=== PATIENT | male | born 1980 | race Caucasian/White ===

== ENCOUNTER → 2022-08-02 | Outpatient (CLI) | payer OTHER, SELFPAY ==
[2022-08-02 12:43] LABS: Erythrocyte Sedimentation Rate 5 mm/hr (0-20)
[2022-08-02 12:44] LABS: Absolute Lymphocyte Count 0.98 X10^3/uL (0.83-4.51); Absolute Neutrophil Count 3.2 X10^3/uL (2.0-7.7); Basophil# 0.03 X10^3/uL; Basophil% 0.6 % (0-1); Eosinophil# 0.14 X10^3/uL; Eosinophils% 2.9 % (0-5); Hemoglobin 15.9 g/dL (13.0-16.5); Lymphocyte # 0.98 X10^3/ul (0.83-4.51); Lymphocyte % 20.2 % (19-41); Mean Corp Hgb Conc 33.1 g/dL (32-36); Mean Corpuscular Hgb 29.2 pg (27.0-32.0); Mean Corpuscular Volume 88.1 fL (80-94); Mean Platelet Vol. 10.3 fl (6.2-12.0); Monocyte% 10.3 % (0-10); NRBC Flagged by Analyzer 0 % (0-5); Neutrophil # 3.19 X10^3/uL (2.7-7.7); Neutrophil % 65.8 % (47-70); Platelet Count 171 K/mm3 (150-450); RBC Distribution Width CV 12.8 % (11.6-14.6); RBC Distribution Width SD 41.1 fl (35.1-43.9); Red Blood Count 5.45 M/mm3 (4.6-6.2); White Blood Count 4.9 K/mm3 (4.4-11.0)
[2022-08-02 13:13] LABS: AST(SGOT) 18 U/L (15-37); Alanine Aminotransfer ALT/SGPT 32 U/L (16-61); Alkaline Phosphatase 57 U/L (45-117); Anion Gap 7 (5-15); BUN 18 mg/dL (7-18); BUN/Creat Ratio 18.9 RATIO (10-20); CRP 2.99 mg/L (0.0-3.0); Calcium,Total 8.8 mg/dL (8.5-10.1); Chloride 103 mmol/L (98-107); Cholesterol 155 mg/dL (200); Creatinine, Serum 0.95 mg/dL (0.70-1.30); EST Glomerular Filtration Rate 92 mL/min (>60); Est Glom Filt Rate - Afr Amer 111 mL/min (>60); Globulin 4.1 g/dL (2.2-4.2); Glucose 110 mg/dL (74-106); High Density Lipoprotein 51 mg/dL; Potassium 4.1 mmol/L (3.5-5.1); Protein, Total 8.1 g/dL (6.4-8.2); Sodium Level 140 mmol/L (136-145); Triglycerides 79 mg/dL; Very Low Density Lipoprotein 16 mg/dL (5-40)
== END | disposition home or self-care (01) ==
LOC: BIMLAB 09:21
PROVIDERS: Internal Medicine; PCP Internal Medicine; Referring Provider Internal Medicine; Visit Provider Internal Medicine
DX: Z13.6 Encounter for screening for cardiovascular disorders (principal); M54.9 Dorsalgia, unspecified; G89.29 Other chronic pain
CPT/HCPCS: 36415; 80053; 80061; 85025; 85652; 86140

== ENCOUNTER 2022-08-11 13:57 | Outpatient (RCR) | payer SELFPAY ==
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
--- NOTE | 2022-11-15 18:43 | HP.PTDCNRP_ITS ---
Patient Information Patient Information: AYAN COLBY was seen in my office for initial evaluation on 08/11/22. The following Plan of Care was established for this patient: POC Established Initial Frequency: 2x /Week Initial Duration: 4 Weeks Anticipated Interventions Patient/Client Instruction: Educate patient on: Condition and Plan of Care For the Purpose of:: To decrease pain, To increase ROM, To improve muscle performance and motor function, To improve ability to perform ADL's, To increase tolerance to activity/condition/position, To improve ability of physical actions for home/community/work/leisure, To improve gait and locomotor functions, To improve health of tissue, To decrease soft tissue restriction and To prevent re- injury Therapeutic Exercise to Include: Strength training, Body mechanics, Postural training, Flexibilty training, Dynamic Lumbar Stabilization and [place] Exercises For the Purpose of:: To decrease pain, To increase ROM, To improve muscle performance and motor function, To improve ability to perform ADL's, To increase tolerance to activity/condition/position, To improve ability of physical actions for home/community/work/leisure, To improve health of tissue, To decrease soft tissue restriction, To increase flexibility/ROM and To prevent re-injury Manual Therapy Techniques to Include: Mobilization Comment: LUMBAR For the Purpose of:: To decrease pain and To increase ROM Last Seen Last Seen: This patient was last seen in our office . Pertinent comments regarding their Physical therapy will appear below: Patient was seen for PT evaluation for back pain for HEP At this point I will be discontinuing this patient from physical therapy. I would be happy to see this patient again in the future if found appropriate by the physician. Thank you! Arslan Hinojosa, PT, Cert MDT, OCS Balance/Gait/Functional tests Balance/Special Test Scores Oswestry Low Back Score: 27
== END 2022-08-11 19:00 | disposition home or self-care (01) ==
LOC: PT 13:57
PROVIDERS: PCP Internal Medicine; Referring Provider Internal Medicine; Visit Provider Internal Medicine
DX: M54.9 Dorsalgia, unspecified (principal); G89.29 Other chronic pain
CPT/HCPCS: 97110; 97162

== ENCOUNTER 2025-02-08 18:31 | Emergency (ER) | payer OTHER, SELFPAY ==
[2025-02-08 18:32] VITALS: BP 119/79; PULSE 82; RESP 16; TEMP 37.1; O2SAT 98; BMI 30.5
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
--- OUTSIDE RECORDS SUMMARY | 2025-02-08 19:51 | XMS RPT_ITS | CCD ---
Author Organization [facility] Team Providers Care Data Developer Name Role Phone KHOA OG APRN, CNP Primary Care Phys ician MIRELA SANDOVAL, KAN Salas Attending Unavailable KHOA OG APRN, CNP Primary Care U Dr. Surendra Acuña Attending Provider Surendra Valenzuela MD Primary Care Provider KIRILL REYNOLDS Attending Unavailabl e SURENDRA VALENZUELA Primary Care Unavailable Gideon Raymundo Attending Unavailable Surendra Valenzuela Referring Unavailable Surendra Valenzuela Primary Care Unavailable Medications Current Medications Medication Drug Class(es) Dates Sig (Normalized) Sig (Original) acetaminophen 325 mg / oxyCODONE hydrochloride 5 mg oral tablet (2 sources) Opioid Agonist Start: 11-23-2022 End: 11-26-2022 take 1-2 tablets by mouth every six hours as needed for pain oxyCODONE-acetaminop hen (PERCOCET) 5-325 mg tablet Indications: Crushing injury of finger, initial encounter , Open displaced fracture of distal phalanx of left ring finger, initial encounter Take 1-2 tablets by mouth every 6 hours as needed for pain for up to 3 days. 12 tablet 0 11/23/2022 11/26/2022 Active Comment on above: Take 1-2 tablets by mouth every 6 hours as needed for pain for up to 3 days. cephalexin 500 mg oral capsule (2 sources) Cephalosporin Antibacterial Start: 11-23-2022 End: 11-28-2022 take 1 capsule by mouth four times daily cephALEXin (KEFLEX) 500 mg capsule Take 1 capsule by mouth four times daily for 5 days. 20 capsule 0 11/23/2022 11/28/2022 Active Comment on above: Take 1 capsule by [facility] four times daily for 5 days. cyclobenzaprine hydrochloride 10 mg oral tablet (1 source) Muscle Relaxant Start: 06-30-2022 End: 07-05-2022 take 1 tablet by mouth three times daily as needed for muscle spasms Flexeril use cyclobenzaprine Dose : 10 mg =, Oral, TID, PRN PRN Muscle spasm, X 5 day(s), # 15 tab(s), 0 Refill(s), 07/05/22 21:18:00 EDT, Lumbar strain Start Date: 06/30/22 Stop Date: 07/05/22 Status: Ordered ibuprofen 200 mg oral tablet (4 sources) Nonsteroidal Anti-inflammatory Drug Start: 08-02-2022 take 1 tablet by mouth every six hours Ibuprofen (Advil) 200 mg tablet Active 200 MG PO EVERY 6 HOURS August 02, 2022 12:00am Comment on above: Take 200 mg by mouth every 6 hours as needed for pain. meloxicam 7.5 mg oral tablet (1 source) Nonsteroidal Anti-inflammatory Drug Start: 06-30-2022 End: 07-30-2022 take 1 tablet by mouth once daily meloxicam 7.5 mg oral tablet Dose : 7.5 mg = 1 tab(s), Oral, qDay, if tolerated well may increase to 15 mg (2 tabs) per day, # 60 tab(s), 0 Refill(s), Lumbar strain Start Date: 06/30/22 Stop Date: 07/30/22 Status: Ordered naproxen 500 mg oral tablet (1 source) Nonsteroidal Anti-inflammatory Drug Start: 04-06-2010 take 1 tablet by mouth twice daily naproxen 500 mg oral tablet 500 mg = 1 tab(s), PO, BID, # 60 tab(s), Supply 0, 0 Refill(s) Start Date: 04/06/10 Status: Ordered None - No Current Medications (1 source) Start: 04-05-2010 None - No Current Medications 0 Refill(s), current med (Hx) Start Date: 04/05/10 Status: Ordered predniSONE 20 mg oral tablet (1 source) Start: 08-02-2022 take 40 mg by mouth once daily Prednisone Active 40 MG PO DAILY August 02, 2022 12:00am Completed/Discontinued Medications Medication Drug Class(es) Dates Sig (Normalized) Sig (Original) oxyCODONE hydrochloride 5 mg oral tablet (5 sources) Opioid Agonist Start: 11-26-2022 take 1 tablet by mouth every six hours as needed for pain oxyCODONE IR (ROXICODONE) 5 mg immediate release tablet Indications: 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 10 tablet 0 11/26/2022 Active Start: 11-24-2022 take 1 tablet by jluis th every six hours as needed for pain oxyCODONE IR (ROXICODONE) 5 mg immediate release tablet Indications: Closed fracture of tuft of distal phalanx of finger Take 1 tablet by mouth every 6 hours as needed for pain. 4 tablet 0 11/24/2022 Active Comment on above: Take 1 tablet by jlusi th every 6 hours as needed for pain. Problems Problem Classification Problem Date Documented Date Episodic/Chronic Administrative/social admission (1 source) Persons encountering health services in other specified circumstances; Translations: [Other reasons for seeking consultation] 08-02-2022 Episodic Fracture of upper limb (8 sources) Closed fracture of distal phalanx of ring finger; Translations: [Nondisplaced fracture of distal phalanx of left ring finger, initial encounter for closed fracture] Onset: 11-26-2022 11-24-2022 Episodic Osteoarthritis (1 source) Arthritis; Translations: [Unspecified osteoarthritis, unspecified site] 08-02-2022 Chronic Other connective tissue disease (1 source) Pain in finger of left hand; Translations: [Pain in left finger(s)] 12-05-2022 Episodic Other screening for suspected conditions (not mental disorders or infectious disease) (1 source) Encounter for screening for cardiovascular disorders; Translations: [Screening for other and unspecified cardiovascular conditions] 08-02-2022 Episodic Other upper respiratory disease (1 source) Seasonal allergy; Translations: [Other seasonal allergic rhinitis] 08-02-2022 Chronic Spondylosis; intervertebral disc disorders; other back problems (1 source) Dorsalgia, unspecified; Translations: [Backache, unspecified] 08-02-2022 Episodic Sprains and strains (1 source) Lower back injury; Translations: [Strain of muscle, fascia and tendon of lower back, initial encounter] Onset: 06-30-2022 Episodic Substance-related disorders (1 source) Nicotine dependence, other tobacco product, uncomplicated; Translations: [Tobacco use disorder] 08-02-2022 Chronic Results Test Name Value Interpretation Reference Range Facility Internal Medicine Office Vis george 05-24-2024 Internal Medicine Office Visit [facility] [address] [place] [address] [place] [address] OFFICE VISIT Date of Service: 05/24/24 MR#: [id number] Acct: [id number] Name: AYAN LARIOS Rep #: [id number] : 1980 Provider: MAGDALENO Landeros Age/Sex: 44/M [facility] Status: Signed Intake Vital Signs 08/02/22 08:26 05/24/24 15:30 Height 6 ft 6 ft Weight: 220 lb BMI 29.8 BP 120/80 Blood Pressure Location Lt brachial Position Sitting Respiration 14 Pulse 76 Pulse Source Monitor Temp 98.1 F Temp Source Temporal Pulse Oximetry (%) 93 Oxygen Delivery Method room air Intake Visit Reasons: acute - ear pain/discuss meds Chief Complaint: 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 L is worse than R. States that he is having ear pressure and some pain, has ringing in his ears. Denies discharge or muffling. It is getting worse. States that it is bad in the mornings when he gets up as he is very dizzy. States L eye for about the same duration started getting puffy and dry in the morning, he states it does not affect vision, has been using atb ointment. States it cui a little occasionally gets some crusting and discharge. The atb ointment helps it throughout the day. States the skin feels tight. 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 Smoking Status: Current some day smoker tobacco type: cigars per week: 2 Electronic Cigarette Use: not used alcohol intake: current alcohol intake frequency: 0-2 drinks per day Alcohol type: beer and hard liquor substance use type: does not use what type of physical activity do you participate in: none do you feel safe at home: Yes Questionnaire MARINA-7 MARINA-7 Feeling nervous, anxious, or on edge: 3 = Nearly every day Not being able to stop or control worryin = More than half the days Worrying too much about different things: 2 = More than half the days Trouble relaxin = More than half the days Being so restless that it is hard to sit still: 2 = More than half the days Becoming easily annoyed or irritable: 3 = Nearly every day Feeling afraid as if something awful might happen: 0 = Not at all Total MARINA-7 score (0-4 normal; 5-9 mild; 10-14 moderate; 15-21 severe): 14 Source: Developed by Drs. Avtar Maynard, Joya Trevino, Ej Carbajal and colleagues, with an educational senthil from [employer] HPI HPI Chief Complaint: est care Details: AYAN LARIOS, is a 44 M who presents to the office today for bilateral ear complaints. Patient states that he has a history of infections requiring antibiotics. He states that that this has been occurring just in the last 3-4 years. He states that he gets a little pressure in the ears and some minor pains but its more of the ringing in the ears that bothers him He also has had some issues with the left eye for the past month. He states that one morning he woke up and it was itchy and burned a little. He has been using an ointment (aquafor) on the lid to keep the skin from being dry. He has not had any issues with his vision. HE has not had any discharge. No pains. Patient states that he would also like to discuss some issues that he has had with anxiety and even some memory type of things. Patient states that he does have a history of having some anxiety that has required medications in the past. He states though that recently he just has had difficulties focusing and staying on task. He states though that the last 4 to 5 months have been new and different as he states that his father which he has watched decline for quite a while now. He also states that they have moved which has been stressful. Then the job is (more content not included)... [facility] Office Visit (AGPOB3) -------- AYAN LARIOS ([id number]) 1980 M Date Time Provider Department 12/24/22 9:15 AM KIRILL REYNOLDS AGPOB3 During your visit today, we recorded the following information about you: Respiration Weight Height 18/minute 102.1 kg 1.803 m Tracy Lombardi LPN 12/27/2022 3:48 PM Signed Prepared 10 cc syringe with 10 cc lidocaine with epinephrine with 27 gauge needle and gave to for injection - Kirill Vaughan LPN, MD 12/27/2022 3:48 PM Signed Hand Clinic Post-op Note Surgical Hx: 11/23/2022 left ring finger crush injury from tow change on a truck, L RF open extra-articular transverse displaced P3 frx, washed and closed in the ED, got antibiotics 11/26/22 left ring finger IANDD, ORIF distal phalanx with 1 retrograde 0.045 K wire that was buried underneath the skin, nerves and tendons intact, K wire removed at 4 wks out Interval Hx: Doing well Has been wearing the splint Pain and swelling improved Still some decreased sensation just at the tip Exam: L RF Healed incisions, chromic tails in place Mod swelling Minimal erythema DIP held in extension Slightly decreased sensation at the ulnar and radial tip [facility] Imaging: L RF K wire in place Dip concentric Frx remains reduced Assessment/Plan: (S62.645C) Closed fracture of tuft of distal phalanx of finger (primary encounter diagnosis) XRs reviewed w/ pt Doing well 4 wks out, ready for pin removal Finger blocked w/ 10 cc's lido w/ epi K wire successfully removed under sterile technique Dressing placed, OK to remove this evening OK to start gentle motion Remain protected Wbing RTC 2 wks for repeat check Additional Injections for (K wire removal) Informed Consent Consent Obtained: Verbal Canmer Protocol A moment to CARE was completed. SIGN IN TIME OUT 12/27/2022 3:47 PM The procedure site was prepped in the usual sterile fashion. Outcome: tolerated well, no immediate complications Post-injection instructions were reviewed with the patient and the patient voiced understanding of these instructions. 10 cc's 1% lido w/ epi for block Kirill Reynolds MD Hand Surgery Allergies As of Date: 12/24/2022 (No Known Allergies) Date Reviewed: 12/24/2022 Reviewed by: Ines De La Garza - Fully Assessed Reason for Visit: Post Op [174] Primary Visit Diagnosis:Closed fracture of tuft of distal phalanx of finger [S62.639A] Order(s):XR DIGIT GENERAL 3V FRONTAL/LAT/OBL LEFT [[id number]] Order #: [id number] Additional Injections [PNE004] Order #: [id number] Prescriptions as of 12/27/2022 - oxyCODONE IR (ROXICODONE) 5 mg immediate release tablet Take 1 tablet by mouth every 6 hours as needed for pain. - ibuprofen (MOTRIN) 200 mg tablet Take 200 mg by mouth every 6 hours as needed for pain. Problem List As Of Date 12/24/2022 Noted Resolved Pre-op exam [Z01.818] 11/26/2022 Open nondisplaced fracture of distal phalanx of*11/26/2022 Letter Text Encounter Status:Closed by KIRILL REYNOLDS on 12/27/22 Normal [facility] Absolute lymphocyte countOrd ered By: Surendra Valenzuela on 08-02-2022 Lymphocytes Auto (Unsp spec) [#/Vol] 0.98 10*3/uL 0.83-4.51 [facility] Basophil percentageOrdered B y: Surendra Valenzuela on 08-02-2022 Basophils/100 WBC (Bld) 0.6 % 0-1 [facility] Bilirubin [Mass/Vol] 0.60 mg/dL 0.20-1.00 [facility] Comment on above: For patients on eltr ombopag therapy, use of Dimension [place] TBIL is not recommended. Chloride [Moles/Vol] 103 mmol/L 98-107 [facility] Cholesterol [Mass/Vol] 155 mg/dL <200 [facility] Comment on above: <200 mg/dL Desirable 200-240 mg/dL Borderline >240 mg/dL High Risk Eosinophils/100 WBC (Bld) 2.9 % 0-5 [facility] Glucose [Mass/Vol] 110 mg/dL 74-106 [facility] Comment on above: Fasting Glucose resu lt from 100 to 125 mg/dL suggests IMPAIRED HOMEOSTASIS per A.D.A. criteria. Neutrophils (Bld) [#/Vol] 3.2 10*3/uL 2.0-7.7 [facility] Neutrophils/100 WBC (Bld) 65.8 % 47-70 [facility] Potassium [Moles/Vol] 4.1 mmol/L 3.5-5.1 [facility] Protein [Mass/Vol] 8.1 g/dL 6.4-8.2 [facility] Sodium [Moles/Vol] 140 mmol/L 136-145 [facility] Triglyceride [Mass/Vol] 79 mg/dL <199 [facility] Comment on above: The drugs N-Acetylcy steine and Metamizole may falsely depress this assay.Serum Triglycerides Reference Interval Normal <150 mg/dL Borderline high 150 - 199 mg/dL High 200 - 499 mg/dL Very High > or = 500 mg/dL WBC (Bld) [#/Vol] 4.9 10*3/uL 4.4-11.0 [facility] Blood erythrocytes count (nu mber/volume)Ordered By: Surendra Valenzuela on 08-02-2022 RBC (Bld) [#/Vol] 5.45 10*6/uL 4.6-6.2 [facility] Blood hemoglobin measurement (mass/volume)Ordered By: Surendra Valenzuela on 08-02-2022 Hemoglobin (Bld) [Mass/Vol] 15.9 g/dL 13.0-16.5 [facility] Blood lymphocytes/100 leukoc ytesOrdered By: Surendra Valenzuela on 08-02-2022 Lymphocytes/100 WBC (Bld) 20.2 % 19-41 [facility] Blood monocytes/100 leukocyt esOrdered By: Surendra Valenzuela on 08-02-2022 Monocytes/100 WBC (Bld) 10.3 % 0-10 [facility] Blood platelet mean volumeOr dered By: Surendra Valenzuela on 08-02-2022 Platelet mean volume (Bld) [Entitic vol] 10.3 fL 6.2-12.0 [facility] Determination of erythrocyte mean corpuscular volume (MCV)Ordered By: Surendra Valenzuela on 08-02-2022 MCV (RBC) [Entitic vol] 88.1 fL 80-94 [facility] Erythrocyte sedimentation ra teOrdered By: Surendra Valenzuela on 08-02-2022 ESR (Bld) [Velocity] 5 mm/h 0-20 [facility] Hematocrit Auto (Bld) [Volum e fraction]Ordered By: Surendra Valenzuela on 08-02-2022 Hematocrit (Bld) [Volume fraction] 48.0 % 40-54 [facility] Laboratory - Chemistry and C hemistry - challengeOrdered By: Surendra Valenzuela on 08-02-2022 ALP [Catalytic activity/Vol] 57 U/L 45-117 [facility] ALT [Catalytic activity/Vol] 32 U/L 16-61 [facility] CO2 [Moles/Vol] 30.0 mmol/L 21.0-32.0 [facility] Globulin (S) [Mass/Vol] 4.1 g/dL 2.2-4.2 [facility] Urea nitrogen/Creatinine [Mass ratio] 18.9 mg/mg 10-20 [facility] - Hematology and Cell countsOrdered By: Surendra Valenzuela on 08-02-2022 Erythrocyte distribution width (RBC) [Entitic vol] 41.1 fL 35.1-43.9 [facility] Erythrocyte distribution width (RBC) [Ratio] 12.8 % 11.6-14.6 [facility] Immature granulocytes/100 WBC (Bld) 0.200 % 0.0-0.9 [facility] Comment on above: IG% - Immature Granu locytes (promyelocytes, myelocytes and metamyelocytes) > 1% indicates that a LEFT SHIFT is Present. MCH (RBC) [Entitic mass] 29.2 pg 27.0-32.0 [facility] Nucleated RBC/100 WBC (Bld) [Ratio] 0 % 0-5 [facility] MCHC Auto (RBC) [Mass/Vol]Or dered By: Surendra Valenzuela on 08-02-2022 MCHC (RBC) [Mass/Vol] 33.1 g/dL 32-36 [facility] No Panel InformationOrdered By: Surendra Valenzuela on 08-02-2022 Estimated GFR (MDRD) Amer 111 mL/min >60 [facility] Comment on above: GFR Calc Estimated GFR (MDRD) Non-Af Amer 92 mL/min >60 [facility] Comment on above: Non- GFR Calc Platelets bldOrdered By: Abel Valenzuela on 08-02-2022 Platelets (Bld) [#/Vol] 171 10*3/uL 150-450 [facility] Serum or plasma C reactive p rotein measurement (mass/volume)Ordered By: Surendra Valenzuela on 08-02-2022 CRP [Mass/Vol] 2.99 mg/L 0.0-3.0 [facility] Comment on above: C-Reactive Protein ( CRP) provides useful information for thediagnosis, therapy and monitoring of inflammatory processesand associated diseases. For the evaluation of Relative Riskfor Cardiovascular Disease, a High Sensitivity CRP (HSCRP)should be ordered. Serum or plasma albumin mariela urement (mass/volume)Ordered By: Surendra Valenzuela on 08-02-2022 Albumin [Mass/Vol] 4.0 g/dL 3.2-5.0 [facility] Serum or plasma albumin/glob ulin mass ratioOrdered By: Surendra Valenzuela on 08-02-2022 Albumin/Globulin [Mass ratio] 1.0 {ratio} 0.9-2.4 [facility] Serum or plasma calcium mariela urement (mass/volume)Ordered By: Surendra Valenzuela on 08-02-2022 Calcium [Mass/Vol] 8.8 mg/dL 8.5-10.1 [facility] Serum or plasma cholesterol in HDL measurement (mass/volume)Ordered By: Surendra Valenzuela on 08-02-2022 Cholesterol in HDL [Mass/Vol] 51 mg/dL >40 [facility] Comment on above: The drugs N-Acetylcy steine and Metamizole may falsely depress this assay. Reference Range HDL <40 mg/dL Low HDL Cholesterol HDL >or= 60 mg/dL High HDL Cholesterol Serum or plasma cholesterol in VLDL measurement (mass/volume)Ordered By: Surendra Valenzuela on 08-02-2022 Cholesterol in VLDL [Mass/Vol] 16 mg/dL 5-40 [facility] Serum or plasma creatinine m easurement (mass/volume)Ordered By: Surendra Valenzuela on 08-02-2022 Creatinine [Mass/Vol] 0.95 mg/dL 0.70-1.30 [facility] Comment on above: The validity of the calculated GFR & GFRAA in patients over 70 years has not been determined. Clinical correlation is essential. Serum or plasma low density lipoprotein (LDL) cholesterol measurement (mass/volume)Ordered By: Surendra Valenzuela on 08-02-2022 Cholesterol in LDL [Mass/Vol] 88 mg/dL 0-130 [facility] Serum or plasma urea nitroge n measurement (mass/volume)Ordered By: Surendra Valenzuela on 08-02-2022 Urea nitrogen [Mass/Vol] 18 mg/dL 7-18 [facility] Thin prep Papanicolaou smear with manual screeningOrdered By: Surendra Valenzuela on 08-02-2022 Thin prep Papanicolaou smear with manual screening 18 U/L 15-37 [facility] Thin prep Papanicolaou smear with manual screening 7 5-15 [facility] LABORATORYOrdered By: Vj Scott on 06-30-2022 Appearance (U) Clear (06/30/22 8:49 PM) Invalid Interpretation Code Clear AO Auto Urine SS Bilirubin Ql (U) Negative (06/30/22 8:49 PM) Invalid Interpretation Code Negative AO Auto Urine SS Color (U) Yellow (06/30/22 8:49 PM) Invalid Interpretation Code AO Auto Urine SS Glucose Test strip (U) [Mass/Vol] Negative Invalid Interpretation Code Negativemg/dL AO Auto Urine SS Hemoglobin Auto test strip (U) [Mass/Vol] Negative (06/30/22 8:49 PM) Invalid Interpretation Code Negative AO Auto Urine SS Ketones Ql (U) Negative Invalid Interpretation Code Negativemg/dL AO Auto Urine SS UA Leuk Est Negative (06/30/22 8:49 PM) Invalid Interpretation Code Negative AO Auto Urine SS UA Nitrite Negative (06/30/22 8:49 PM) Invalid Interpretation Code Negative AO Auto Urine SS UA pH 7.0 (06/30/22 8:49 PM) Invalid Interpretation Code 5.0 - 8.0 AO Auto Urine SS UA Protein Negative Invalid Interpretation Code Negativemg/dL AO Auto Urine SS UA Spec Grav 1.010 *ABN* (06/30/22 8:49 PM) Invalid Interpretation Code 1.015-1.025 AO Auto Urine SS UA Specimen Type Clean Catch (06/30/22 8:49 PM) Invalid Interpretation Code AO Auto Urine SS UA Urobilinogen 0.2 E.U./dL Invalid Interpretation Code 0.2-1.0E.U./d L AO Auto Urine SS UAon 06-30-2022 Color (U) Yellow Normal [facility] ([place]) Comment on above: Performed By: #### U A #### [address] [address] Glucose (U) [Mass/Vol] Negative Normal Negative [facility] ([place]) Comment on above: Performed By: #### U A #### [place] [id number] Ketones Ql (U) Negative Normal Negative [facility] ([place]) Comment on above: Performed By: #### U A #### [place] [address] UA Appear Clear Normal Clear [facility] ([place]) Comment on above: Performed By: #### U A #### [place] [address] UA Blood Negative Normal Negative [facility] ([place]) Comment on above: Performed By: #### U A #### [place] [address] UA Leuk Est Negative Normal Negative [facility] ([place]) Comment on above: Performed By: #### U A #### [place] [address] UA Nitrite Negative Normal Negative [facility] ([place]) Comment on above: Performed By: #### U A #### [place] [address] UA pH 7.0 Normal 5.0 - 8.0 [facility] ([place]) Comment on above: Performed By: #### U A #### [place] [address] UA Protein Negative Normal Negative [facility] ([place]) Comment on above: Performed By: #### U A #### [place] [address] UA Spec Grav 1.010 Abnormal 1.015-1.025 [facility] ([place]) Comment on above: Performed By: #### U A #### [place] [address] UA Specimen Type Clean Catch Normal [facility] ([place]) Comment on above: Performed By: #### U A #### [place] [id number] UA Urobilinogen 0.2 E.U./dL Normal 0.2-1.0 [facility] ([place]) Comment on above: Performed By: #### U A #### [place] [address] [place], [place] [address] Urobilinogen (U) [Mass/Vol] Negative Normal Negative [facility] ([place]) Comment on above: Performed By: #### U A #### [place] [address] [place], [place] [address] Additional Injections [facility] Vital Signs Date Time Vital Sign Value Performing Clinician Facility 12-24-2022 09:42-0400 Body height 180.3 cm Kirill Reynolds MD Work Phone: [facility] 12-24-2022 09:42-0400 Body weight 102.06 kg Kirill Reynolds MD Work Phone: [facility] 12-24-2022 09:42-0400 Respiratory rate 18 /min Kirill Reynolds MD Work Phone: [facility] [facility] 12-03-2022 09:38-0400 Body height 180.3 cm Kirill Reynolds MD Work Phone: [facility] 12-03-2022 09:38-0400 Body weight 102.06 kg Kirill Reynolds MD Work Phone: [facility] 12-03-2022 09:38-0400 Respiratory rate 16 /min Kirill Reynolds MD Work Phone: [facility] 11-24-2022 11:28-0400 Body height 180.3 cm Kirill Reynolds MD Work Phone: [facility] 11-24-2022 11:28-0400 Body weight 90.72 kg Kirill Reynolds MD Work Phone: [facility] 11-24-2022 11:28-0400 Respiratory rate 16 /min Kirill Reynolds MD Work Phone: [facility] 08-02-2022 08:26-0400 Body height 182.[address] Surendra Valenzuela Work Phone: [facility] 08-02-2022 08:26-0400 Body mass index (BMI) [Ratio] 30.5 kg/m2 Dr. Surendra Valenzuela Work Phone: [facility] 08-02-2022 08:26-0400 Body temperature 97.7 [degF] Dr. Surendra Valenzuela Work Phone: [facility] 08-02-2022 08:26-0400 Body weight 102.[address] Surendra Valenzuela Work Phone: [facility] 08-02-2022 08:26-0400 Diastolic blood pressure 80 mm[Hg] Dr. Surendra Valenzuela Work Phone: [facility] 08-02-2022 08:26-0400 Heart rate 60 /min Dr. Surendra Valenzuela Work Phone: [facility] 08-02-2022 08:26-0400 Respiratory rate 14 /min Dr. Surendra Valenzuela Work Phone: [facility] 08-02-2022 08:26-0400 SaO2% (BldA) [Mass fraction] 99 % Dr. Surendra Valenzuela Work Phone: [facility] 08-02-2022 08:26-0400 Systolic blood pressure 124 mm[Hg] Dr. Surendra Valenzuela Work Phone: [facility] 06-30-2022 21:50-0400 Heart rate 73 /min KAN DIETZ MD [facility] 06-30-2022 21:50-0400 Respiratory rate 16 /min KAN DIETZ MD [facility] 06-30-2022 20:04-0400 Body temperature 98.42 [degF] KAN DIETZ MD [facility] 06-30-2022 20:04-0400 Diastolic Blood Pressure Non-Invasive 100 1 KAN DIETZ MD [facility] 06-30-2022 20:04-0400 Heart rate 75 /min KAN DIETZ MD [facility] 06-30-2022 20:04-0400 Respiratory rate 16 /min KAN DIETZ MD [facility] 06-30-2022 20:04-0400 Systolic Blood Pressure Non-Invasive 140 1 KAN DIETZ MD [facility] Encounters Encounter Date Encounter Type Care Provider Facility Start: 05-24-2024 End: 05-24-2024 ambulatory Gideon DOLAN [facility] Start: 12-24-2022 End: 12-24-2022 ambulatory KIRILL REYNOLDS Facility:[facility] Start: 12-24-2022 End: 12-24-2022 Patient encounter procedure Kirill Reynolds MD Work Phone: [facility] Comment on above: Closed fracture of t uft of distal phalanx of finger (Primary Dx) Start: 12-03-2022 End: 12-03-2022 ambulatory Anali Briggs OTR/L Work Phone: [facility] Comment on above: Pain in finger of le ft hand (Primary Dx); Open nondisplaced fracture of distal phalanx of left ring finger, initial encounter Start: 12-03-2022 End: 12-03-2022 Patient encounter procedure Kirill Reynolds MD Work Phone: [facility] Comment on above: Closed fracture of t uft of distal phalanx of finger (Primary Dx) Start: 11-26-2022 Preprocedural examination done Kirill Reynolds MD Work Phone: [facility] Work Phone: Start: 11-24-2022 End: 11-24-2022 Orders Only Kirill Reynolds MD Work Phone: [facility] Comment on above: Closed nondisplaced fracture of distal phalanx of left ring finger, initial encounter (Primary Dx) Closed fracture of t uft of distal phalanx of finger (Primary Dx) Start: 08-11-2022 End: 08-11-[address] Surendra Valenzuela Work Phone: [facility] Work Phone: Start: 08-11-2022 End: 08-11-[address] Surendra Valenzuela Work Phone: [facility] Work Phone: Start: 08-02-2022 End: 08-02-[address] Surendra Valenzuela Work Phone: [facility] Work Phone: Start: 06-30-2022 End: 06-30-2022 Emergency department patient visit KAN DIETZ MD Facility:[facility] Start: 06-30-2022 End: 06-30-2022 Emergency department patient visit KAN DIETZ MD [facility] Procedures Date Procedure Procedure Detail Performing Clinician Start: 12-27-2022 ADDITIONAL INJECTION/ARTHROCENTESIS Kirill Reynolds MD Work Phone: Plan of Treatment Date Care Activity Detail Author Start: 11-23-2032 Urine microalbumin profile [facility] Start: 11-19-2022 Covid-19 Vaccine () Covid-19 Vaccine () [facility] Start: 11-19-2022 Influenza vaccination [facility] Start: 08-02-2022 Patient referral [facility] Work Phone: Start: 03-21-2022 DEPRESSION ASSESSMENT DEPRESSION ASS ESSMENT [facility] Start: 09-10-2020 COVID-19 VACCINE (3 - Moderna series) COVID-19 VACCINE (3 - Moderna series) [facility] Start: 2015 Lipid 1996 panel - S loly or Plasma Lipid Screening [facility] Start: 2015 LIPID SCREEN LIPID SCREEN [facility] Start: 1998 HEPATITIS C SCREENING HEPATITIS C SC MARINA [facility] Start: 1998 HIV SCREENING HIV SCREENING [facility] Start: 1980 HEPATITIS B (1 of 3 - 3-dose series) HEPATITIS B (1 of 3 - 3-dose series) [facility] Start: 1980 Hepatitis B Vaccine (1 of 3 - 3-dose series) Hepatitis B Vaccine (1 of 3 - 3-dose series) [facility] Patient referral [facility] Work Phone: XR DIGIT GENERAL 3V FRONTAL/LAT/OBL LEFT XR DIGIT GENERAL 3V FRONTAL/LAT/OBL LEFT Radiology Routine Closed fracture of tuft of distal phalanx of finger Ordered: 11/24/2022 [facility] Work Phone: Comment on above: Ordered: 11/24/2022 XR DIGIT GENERAL 3V FRONTAL/LAT/OBL LEFT XR DIGIT GENERAL 3V FRONTAL/LAT/OBL LEFT Radiology Routine Closed fracture of tuft of distal phalanx of finger Ordered: 12/04/2022 [facility] Work Phone: Comment on above: Ordered: 12/04/2022 XR DIGIT GENERAL 3V FRONTAL/LAT/OBL LEFT XR DIGIT GENERAL 3V FRONTAL/LAT/OBL LEFT Radiology Routine Closed fracture of tuft of distal phalanx of finger Ordered: 12/27/2022 [facility] Work Phone: Comment on above: Ordered: 12/27/2022 XR Lumbar spine 2 or 3 Views [facility] Immunizations Immunization Date Immunization Notes Care Provider Fa cilinatty 11-23-2022 tetanus toxoid, redu bruno diphtheria toxoid, and acellular pertussis vaccine, adsorbed Kirill Reynolds MD Work Phone: [facility] 07-16-2020 Covid (Moderna) Dr. Surendra eason Work Phone: [facility] 06-12-2020 Covid (Moderna) Dr. Surendra eason Work Phone: [facility] 01-13-2015 tetanus toxoid, redu bruno diphtheria toxoid, and acellular pertussis vaccine, adsorbed Dr. Surendra Valenzuela Work Phone: [facility] Payers Date Payer Category Payer Private Health Insurance [id number] 2024 Self-pay 2022 Unknown [id number] 2019 Private Health Insurance [facility] [id number] 2019-Present [phone] [address] [address] [place] [address] HMO [id number] 2019 Unknown [id number] 1980 Unknown [id number] Unknown [facility] P[employer]AN [id number] Unknown [id number] Social History Date Type Detail Facility Tobacco smoking status [facility] Start: 1980 Sex Assigned At Male A [facility] Start: 08-02-2022 [facility] Start: 11-24-2022 [facility] tobacco [facility] Start: 11-24-2022 Tobacco use and exposure Smokeless tobacco non-user [facility] Start: 11-24-2022 End: 12-24-2022 Alcohol intake Current drinker of alcohol (finding) [facility] Start: 11-24-2022 End: 12-03-2022 History of Social function [facility] Start: 11-24-2022 End: 12-03-2022 Tobacco use panel [facility] National Score (1-100), lower number is lower risk 71 [facility] Start: 1980 Sex Assigned At Not on file [facility] Start: 11-25-2022 Alcohol Comment [address] [facility] Medical Equipment Procedure Code Equipment Code Equipment Origin al Text Equipment Identifier Dates Wire Tavo .045in Stainless Steel 6in Fixation Smooth [place] Both - [id number] Start: 11-26-2022 Functional Status Date Assessment Result Facility 06-30-2022 Functional Status Assistive Device None A [facility] 06-30-2022 Functional Status Awake [facility] Mental Status Date Assessment Result Facility 06-30-2022 Mental Status Orientation Oriented x 4 [facility] 06-30-2022 Mental Status [facility] Clinical Notes 06-30-2022 to 12-22-2023 Kirill Reynolds MD - 12/27/2022 7:11 AM Tracy Stokes LPN - 12/24/2022 10:00 AM Kirill Russo MD - 12/04/2022 9:30 AM Anali Shabazz OTR/Jessenia - 12/03/2022 8:00 PM EDT Note Date & Type Note Facility 12-22-2023 Note HNO ID: [id number] Author: ANALI BRIGGS OTR/Jessenia Service: ? Author Type: Occupational Therapist Type: Progress Notes Filed: 12/22/2023 09:07 Note Text: 12/22/2023 [facility] O[facility]ATIONAL THERAPY DISCONTINUANCE OF CARE Plan of Care Period: Start of Care Date: 12/03/22 Last Visit Date: 12/03/2022 Therapy Program: Patient did not return for follow up care as planned. Please refer to last visit note for interventions provided for this episode of care. Assessment: Unable to formally assess goal achievement. Reason for Discontinuation of Care: Patient has not returned to therapy or scheduled additional follow-up appointments. ABELARDO Zaidi/L [facility] 12-27-2022 Note HNO ID: [id number] Author: Kirill Reynolds MD Service: ? Author Type: Physician Type: Progress Notes Filed: 12/27/2022 3:48 PM Note Text: Hand Clinic Post-op Note Surgical Hx: 11/23/2022 left ring finger crush injury from tow change on a truck, L RF open extra-articular transverse displaced P3 frx, washed and closed in the ED, got antibiotics 11/26/22 left ring finger IANDD, ORIF distal phalanx with 1 retrograde 0.045 K wire that was buried underneath the skin, nerves and tendons intact, K wire removed at 4 wks out Interval Hx: Doing well Has been wearing the splint Pain and swelling improved Still some decreased sensation just at the tip Exam: L RF Healed incisions, chromic tails in place Mod swelling Minimal erythema DIP held in extension Slightly decreased sensation at the ulnar and radial tip Sabinal wwp Imaging: L RF K wire in place Dip concentric Frx remains reduced Assessment/Plan: (S62.770H) Closed fracture of tuft of distal phalanx of finger (primary encounter diagnosis) XRs reviewed w/ pt Doing well 4 wks out, ready for pin removal Finger blocked w/ 10 cc's lido w/ epi K wire successfully removed under sterile technique Dressing placed, OK to remove this evening OK to start gentle motion Remain protected Wbing RTC 2 wks for repeat check Additional Injections for (K wire removal) Informed Consent Consent Obtained: Verbal Canmer Protocol A moment to CARE was completed. SIGN IN TIME OUT 12/27/2022 3:47 PM The procedure site was prepped in the usual sterile fashion. Outcome: tolerated well, no immediate complications Post-injection instructions were reviewed with the patient and the patient voiced understanding of these instructions. 10 cc's 1% lido w/ epi for block Kriill Reynolds MD Hand Surgery [facility] 12-27-2022 History of Present illness Narrative Associated Order(s): Additional Injections Post-Procedure Diagnose(s): Closed fracture of tuft of distal phalanx of finger Hand Clinic Post-op Note Surgical Hx: 11/23/2022 left ring finger crush injury from tow change on a truck, L RF open extra-articular transverse displaced P3 frx, washed and closed in the ED, got antibiotics 11/26/22 left ring finger I&D, ORIF distal phalanx with 1 retrograde 0.045 K wire that was buried underneath the skin, nerves and tendons intact, K wire removed at 4 wks out Interval Hx: Doing well Has been wearing the splint Pain and swelling improved Still some decreased sensation just at the tip Exam: L RF Healed incisions, chromic tails in place Mod swelling Minimal erythema DIP held in extension Slightly decreased sensation at the ulnar and radial tip Sabinal wwp Imaging: L RF K wire in place Dip concentric Frx remains reduced Assessment/Plan: (L12.331M) Closed fracture of tuft of distal phalanx of finger (primary encounter diagnosis) XRs reviewed w/ pt Doing well 4 wks out, ready for pin removal Finger blocked w/ 10 cc's lido w/ epi K wire successfully removed under sterile technique Dressing placed, OK to remove this evening OK to start gentle motion Remain protected Wbing RTC 2 wks for repeat check Additional Injections for (K wire removal) Informed Consent Consent Obtained: Verbal Canmer Protocol A moment to CARE was completed. SIGN IN TIME OUT 12/27/2022 3:47 PM The procedure site was prepped in the usual sterile fashion. Outcome: tolerated well, no immediate complications Post-injection instructions were reviewed with the patient and the patient voiced understanding of these instructions. 10 cc's 1% lido w/ epi for block Kirill Reynolds MD Hand Surgery Prepared 10 cc syringe with 10 cc lidocaine with epinephrine with 27 gauge needle and gave to for injection - Tracy Lombardi LPN documented in this encounter [facility] 12-24-2022 Note HNO ID: [id number] Author: Tracy Lombardi LPN Service: ? Author Type: LICENSED NURSE Type: Progress Notes Filed: 12/27/2022 3:48 PM Note Text: Prepared 10 cc syringe with 10 cc lidocaine with epinephrine with 27 gauge needle and gave to for injection - Tracy Lombardi LPN [facility] 12-04-2022 History of Present illness Narrative Hand Clinic Post-op Note Surgical Hx: 11/23/2022 left ring finger crush injury from tow change on a truck, L RF open extra-articular transverse displaced P3 frx, washed and closed in the ED, got antibiotics 11/26/22 left ring finger I&D, ORIF distal phalanx with 1 retrograde 0.045 K wire that was buried underneath the skin, nerves and tendons intact Interval Hx: Has been in the dressing Pain controlled Exam: Left ring finger Moderate swelling Nail plate intact Full sensation radial and ulnar sides Flicker of FDP intact No extensor lag I cannot see the buried K wire Healing of the volar laceration with chromic's in place, no evidence of infection or purulence Imaging: X-ray left ring finger K wire in place, concentric DIP Assessment/Plan: (U13.942V) Closed fracture of tuft of distal phalanx of finger (primary encounter diagnosis) X-rays reviewed Finger is warm and well perfused and viable at this point, no need for acute amputation, no signs of infection, tendon and nerves intact Discussed with him that he needs okay to get this wound wet with warm running soapy water, remain strictly nonweightbearing Work on PIP and MCP range of motion OT referral placed for hebert straps, DIP splint, and range of motion of the PIP Given strict return precautions if he should note any increased pain swelling or purulent drainage concerning for infection RTC 3 weeks for pin removal in the office Kirill Reynolds MD Hand Surgery documented in this encounter [facility] 12-03-2022 History of Present illness Narrative Episode Visit Count: 1 Therapist That Will Accept/Oversee The Plan Of Care: Anika Briggs Start of Care Date: 12/03/22 Onset Date: 11/23/22 Patient Identified by Name and Date of : Yes [facility] OCCUPATIONAL THERAPY EVALUATION PLAN OF CARE: Assessment: Ayan Larios presents with diagnosis of Closed fracture of tuft of distal phalanx of finger (left ring) that interferes with lifting, physical activities, gripping, twisting, carrying . He presents with impairments in edema management, overall function, range of motion, and tissue tenderness. Patient did not complete the PROMIS (Patient Reported Outcome Measures Information System). Prognosis for therapy is Excellent due to: current objective clinical presentation, good overall health status . He will benefit from skilled therapy services to meet the goals established for this plan of care as noted below. Goals for Episode of Care created on 12/03/22 through 02/03/23 Patient will demonstrate independence with ongoing home recommendations/exercise program throughout therapy plan of care. Patient will report a decrease in pain in Left ring finger to 1/10 with prior functional tasks. Patient will increase AROM of Left ring finger to be 80 to 90% of the right in order to be able to improve function for work tasks. Patient will independently demonstrate correct application of CUSTOM orthosis and verbalize understanding of proper wear/care. MET Patient will report a good understanding of edema control, scar / wound management throughout therapy plan of care to promote non-adherent / non-tender soft tissue. Patient Goals: Use hand Planned Interventions, Frequency, and Duration: Current Frequency: 1x every other week Duration: 8 weeks Total Number of Visits Planned: 4 Planned Treatment Interventions: Custom orthosis fabrication, Therapeutic exercise (41786), Self-long term management ([id number]), Patient/Family/Caregiver Education PLAN FOR NEXT VISIT: Patient to contact OT for orthosis modifications as needed. Initiate scar management / desensitization next session. Patient demonstrates good understanding of plan of care and treatment. The above goals and plan of care were discussed and agreed upon by patient/family. SUBJECTIVE: Custom orthosis for left ring finger DIP Joint. 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 5 points is clinically meaningfully difference Percentiles provide an indication of how the patient's score ranks in relation to the general population. Higher percentile rankings indicate better function/quality of life. 50th percentile is the average of the general population and indicates half of respondents had a worse score. OBJECTIVE MEASURES WITH LEVEL OF FUNCTION: Hand Skin / Wound: Sutures, Wound Description Wound Description: Progressing as expected, Draining Sutures: absorbable Edema Location: Left ring finger Edema Description: Moderate Edema Measurements: Digits Edema - Digits: Ring Finger R Ring Finger PIP Joint (cm): 7.3 cm R Ring Finger DIP Joint (cm): 6.4 cm L Ring Finger PIP Joint (cm): 7.7 cm L Ring Finger DIP Joint (cm): 8.3 cm Left Hand AROM: Ring Finger Strength: (Testing not indicated) Sensation: Reports tingling or numbness (grossly intact to light touch) Dexterity/Coordination: Observed to be functional UE AROM Left Hand AROM: Ring Finger Education: Education Learning Preferences: Explanation Barriers: None Learning/educational needs: Procedure / Surgery, Home exercise program, Plan of Care (Orthosis) Education Provided: Yes, see treatment interventions for education provided Education Provided To: Patient Education Mode/Type: Demonstration, Explanation/Discussion, Performance Response to Education/Teach Back: States/Identifies, Return Demonstration TREATMENT: OT Treatment Interventions : Self-Detention Management, Custom Orthosis/Splint Fabrication Evaluation Self-Detention Management: 1: Skilled instruction was provided regarding diagnosis, plan of care and postoperative precautions related to ADLs. No weightbearing heavy gripping, twisting or lifting with the left hand. No submerging of the hand in water. 2: Skilled instruction was provided regarding skin/incision site care. He is to wash the hand daily with soap and water dry thoroughly with a towel. No lotions or ointments applied to the suture sites. Instructed regarding dressing changes. Recommended Xeroform followed by light layer of gauze. Use of Coban at night. Patient was provided for supplies for the above. 3: Skilled instruction was provided to begin MP and PIP blocking with the splint in place to minimize any stiffness of the uninvolved joints. Patient verbalized and demonstrated understanding of these exercises. 4: Skilled instruction provided re: hebert strapping ring to long finger during the day per Dr Reynolds. Skilled Intervention: Reviewed patient specific diagnosis in relation to activities of daily living/home management. Correct performance of home program was facilitated with verbal and visual cueing. Custom orthosis: L 3933 FO static finger (mallet, tip protector, trough, dorsal block, boutonniere/swan neck) (Tip protector) Custom orthosis to provide immobilization, protection and support of taken to the restroom to promote healing, OT provided patient with education/ written instructions for orthosis care and precautions., and Pt practiced orthosis application, donning on/off while under OT's supervision.. Patient was instructed in care of orthosis and wearing schedule full-time except showering. Skilled Intervention: Clinical knowledge and skills required for custom orthotic fabrication and wearing schedule Patient/caregiver was educated in correct method for donning/doffing orthosis as well as wear and care of orthosis. Patient/Family/Caregiver Education: Precautions, purpose and use of orthosis Discussed management of any symptoms related to wearing the prosthesis Billing * Evaluation Low Complexity: 1 Unit Self-Care/Home Management Treatment Minutes: 10 * L 3933 FO static finger (mallet, tip protector, trough, dorsal block, boutonniere/swan neck) Quantity: 1 Fabrication time for custom splint (minutes): 10 Skilled Treatment Time Minutes (timed and untimed codes): 35 Total Session Time (minutes): 39 Session Start Time : 1035 Session Stop Time : 1114 DIPTI Zaidi,CHT documented in this encounter [facility] 11-24-2022 History of Present illness Narrative Hand Surgery New Pt Note HPI: 42-year-old male 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 No pertinent past medical history. ALLERGIES No Known Allergies Social History Tobacco Use Smoking status: Never Smokeless tobacco: Never Substance Use Topics Alcohol use: Yes Drug use: Never Review of Systems: 12 point review of systems was performed and found to be non-contributory Exam: Left ring finger Significant swelling, skin looks macerated, circumferential laceration around the proximal half of P3 closed with nylons, slight amount of serous sang drainage, nail plate feels a little loose Hard to test the FDP, but appears to be intact, may be a 5 to 10 degree extensor lag but difficult to tell with all of the swelling Decree sensation on the radial and ulnar borders Slightly dusky appearance Imaging: XR left ring finger extra-articular transverse displaced P3 frx, improved alignment from injury films Assessment/Plan: (J37.596K) Closed fracture of tuft of distal phalanx of finger (primary encounter diagnosis) I reviewed the x-rays with the patient He has a displaced transverse fracture and significant soft tissue trauma with swelling and slight amount of drainage We discussed nonoperative versus operative management, non-op would include continued antibiotics that he got in the ED and a tip protector with a DIP extension splint, he would have to wear this for 4 to 6 weeks minimum, there is a risk that the fracture would further displace like it did an initial injury Operative management would include a wire that goes across the DIP joint to hold the fracture in appropriate alignment, hopefully we can pull this out at 4 weeks, I would also be able to open the wounds and give it a more thorough washing debridement, his tissues do not look great right now and it may benefit from a more thorough wash. Risks of surgery would include infection, hardware complications, breaking of the hardware. I do think it would better hold the fracture in appropriate alignment to give it a better chance of healing I told him that either route, there is a risk that this finger DIP becomes very stiff and there is a risk of infection even with nonoperative management because it was an open fracture After considering the pros and cons of surgery, the patient opted to undergo surgery which I do think is reasonable. I think it would be good to washout the fracture site. I also gave the patient 4 more pain meds to make it to the surgery. Consent signed Local and MAC Non-operative and operative interventions were thoroughly discussed w/ the pt. After explaining the risks and benefits of each route, the pt elected to proceed w/ operative intervention. I explained the specific risks, benefits, and goals of the procedure. These risks include, but are not limited to: infection, wound healing problems, neurovascular injury, weakness, stiffness, scarring, Complex regional pain syndrome, and even loss of limb. All the pt's questions were answered to their satisfaction. The pt expressed understanding of the risks, benefits, and possible outcomes. Medical Decision Making: Problems: Moderate: Acute complicated injury Data: Unique test result(s) reviewed: 1 Unique test(s) ordered: 1 Risk: Moderate: Decision on minor surgery w/ risk factors Medical Decision Making Level: 4 - Moderate Kirill Reynolds MD Hand Surgery documented in this encounter [facility] 11-15-2022 Discharge summary Note Date/Time November 15, 2022 6:44pm [facility] [address] [place] [address]. [address] [place] [address] / REHABILITATION SERVICES DISCHARGE SUMMARY MR#: [id number] Acct: [id number] Name: AYAN LARIOS Rep #: [id number] : 1980 42 From: Cert. МАРИНА Ríos, OCS Referring Dr.: Dr. Surendra Valenzuela MD Status: REG RCR Insurance: [facility] [employer] SELF PAY INSURANCE Patient Information Patient Information: AYAN LARIOS was seen in my office for initial evaluation on 08/11/22. The following Plan of Care was established for this patient: POC Established Initial Frequency: 2x /Week Initial Duration: 4 Weeks Anticipated Interventions Patient/Client Instruction: Educate patient on: Condition and Plan of Care For the Purpose of:: To decrease pain, To increase ROM, To improve muscle performance and motor function, To improve ability to perform ADL's, To increasetolerance to activity/condition/position, To improve ability of physical actionsfor home/community/work/leisure, To improve gait and locomotor functions, To improve health of tissue, To decrease soft tissue restriction and To prevent re-injury Therapeutic Exercise to Include: Strength training, Body mechanics, Postural training, Flexibilty training, Dynamic Lumbar Stabilization and Sharon Exercises For the Purpose of:: To decrease pain, To increase ROM, To improve muscle performance and motor function, To improve ability to perform ADL's, To increasetolerance to activity/condition/position, To improve ability of physical actionsfor home/community/work/leisure, To improve health of tissue, To decrease soft tissue restriction, To increase flexibility/ROM and To prevent re-injury Manual Therapy Techniques to Include: Mobilization Comment: LUMBAR For the Purpose of:: To decrease pain and To increase ROM Last Seen Last Seen: This patient was last seen in our office . Pertinent comments regarding their Physical therapy will appear below: Patient was seen for PT evaluation for back pain for HEP At this point I will be discontinuing this patient from physical therapy. I would be happy to see this patient again in the future if found appropriate by the physician. Thank you! Arslan Hinojosa PT, Cert MDT, OCS Balance/Gait/Functional tests Balance/Special Test Scores Oswestry Low Back Score: 27 <Electronically signed by Kelly Palomino PT. МАРИНА, OCS> 11/15/22 1852 CC: Dr. Surendra Valenzuela MD ~ DOMONIQUE Signed [facility] Work Phone: [phone] Hospital Discharge instructions Patient Education 06/30/2022 21:42:04 Back Pain (Acute or Chronic) Back Pain (Acute or Chronic) Back pain is one of the most common problems. The good news is that most people feel better in 1 to2 weeks, and most of the rest in 1 to 2 months. Most people can remain active. People who have pain describe it differently not everyone is the same. The pain can be sharp, stabbing, shooting, aching, cramping or burning. Movement, standing, bending, lifting, sitting, or walking may worsen pain. It can be localized to one spot or area, or it can be more generalized. It can spread or radiate upwards, to the front, or go down your arms or legs (sciatica). It can cause muscle spasm. Most of the time, mechanical problems with the muscles or spine cause the pain. Mechanical problemsare usually caused by an injury to the muscles or ligaments. While illness can cause back pain, it is usually not caused by a serious illness. Mechanical problems include: Physical activity such as sports, exercise, work, or normal activity Overexertion, lifting, pushing, pulling incorrectly or too aggressively Sudden twisting, bending, or stretching from an accident, or accidental movement Poor posture Stretching or moving wrong, without noticing pain at the time Poor coordination, lack of regular exercise (check with your doctor about this) Spinal disc disease or arthritis Stress Pain can also be related to , or illness like appendicitis, bladder or kidney infections, pelvic infections, and many other things. Acute back pain usually gets better in 1 to 2 weeks. Back pain related to disk disease, arthritis in the spinal joints or spinal stenosis (narrowing of the spinal canal) can become chronic and last for months or years. Unless you had a physical injury (for example, a car accident or fall) X-rays are usually not needed for the initial evaluation of back pain. If pain continues and does not respond to medical treatment, X-rays and other tests may be needed. Home care Try these home care recommendations: When in bed, try to find a position of comfort. A firm mattress is best. Try lying flat on your back with pillows under your knees. You can also try lying on your side with your knees bent up towardsyour chest and a pillow between your knees. At first, do not try to stretch out the sore spots. If there is a strain, it is not like the good soreness you get after exercising without an injury. In this case, stretching may make it worse. Don't sit for long periods, as in a long car ride or during other travel. This puts more stress on the lower back than standing or walking. During the first 24 to 72 hours after an acute injury or flare up of chronic back pain, apply an ice pack to the painful area for 20 minutes and then remove it for 20 minutes. Do this over a period of 60 to 90 minutes or several times a day. This will reduce swelling and pain. Wrap the ice pack in a thin towel or plastic to protect your skin. You can start with ice, then switch to heat. Heat (hot shower, hot bath, or heating pad) reduces pain and works well for muscle spasms. Heat can be applied to the painful area for 20 minutes then remove it for 20 minutes. Do this over a period of 60 to 90 minutes or several times a day. Do not sleep on a heating pad. It can lead to skin cui or tissue damage. You can alternate ice and heat therapy. Talk with your doctor about the best treatment for your back pain. Therapeutic massage can help relax the back muscles without stretching them. Be aware of safe lifting methods and do not lift anything without stretching first. Medicines Talk to your doctor before using medicine, especially if you have other medical problems or are taking other medicines. You may use nqyq-[id number] medicine as directed on the bottle to control pain, unless another pain medicine was prescribed. If you have chronic conditions like diabetes, liver or kidney disease, stomach ulcers, or gastrointestinal bleeding, or are taking blood thinners, talk to your doctor beforetaking any medicine. Be careful if you are given a prescription medicines, narcotics, or medicine for muscle spasms. They can cause drowsiness, affect your coordination, reflexes, and judgement. Do not drive or operate heavy machinery. Follow-up care Follow up with your healthcare provider, or as advised. A radiologist will review any X-rays that were taken. Your provide will notify you of any new findings that may affect your care. Call 911 Call 911 if any of the following occur: Trouble breathing Confusion Very drowsy or trouble awakening Fainting or loss of consciousness Rapid or very slow heart rate Loss of bowel or bladder control When to seek medical advice Call your healthcare provider right away if any of these occur: Pain becomes worse or spreads to your legs Weakness or numbness in one or both legs Numbness in the groin or genital area [id number] [employer]. [address] [place] [address]. All rights reserved. This information is not intended as a substitute for professional medical care. Always follow yourhealthcare professional's instructions. 06/30/2022 21:41:57 Lumbar Flexion (Flexibility) Lumbar Flexion (Flexibility) 1. Lie on your back on the floor, with your knees bent and your feet flat on the floor. 2. Gently pull your knees up toward your chest. Put your hands under your thighs to help pull your knees up. 3. Press your lower back down to the floor. Hold for 20 seconds. 4. Lower your legs back down to the floor and relax. 5. Repeat 2 times, or as instructed. [employer]. [address] [place] [address]. All rights reserved. This information is not intended as a substitute for professional medical care. Always follow yourhealthcare professional's instructions. 06/30/2022 21:41:57 Lumbar Extension (Flexibility) Lumbar Extension (Flexibility) 1. Lie face down on your stomach, forehead on the floor. You can lie on a mat or towel. 2. Bend your arms next to your body and lift your upper body up on your forearms. Your palms and forearms should be flat on the floor. Keep your stomach and hips on the floor. 3. Hold your upper body up with your forearms for 20 seconds. Slowly lower back down to the floor. 4. Repeat 2 times, or as instructed. [employer] [address] [place] [address]. All rights reserved. This information is not intended as a substitute for professional medical care. Always follow yourhealthcare professional's instructions. Follow Up Care 06/30/2022 19:57:46 With:[facility] - CALL [phone] Address: When:2-4 days With:[facility] Address: [address] [place] [id number] Business (1) When:2-4 days With:KHOA DANIEL BUSINESS DEVELOPMENT OFFICER - [facility] Address: [address] [place] [id number] When:2-4 days [facility] 04-12-2023 Note Discharge Instructions Thank you for allowing [facility] to assist you with your healthcare needs. The following is importantdischarge information regarding your hospital visit. Diagnosis from Today's Visit Lumbar strain Back pain What to Do Next Instructions from Your Care Team No qualifying data available. Post Acute Orders No qualifying data available. You Need to Schedule the Following Appointments Follow Up with [facility] - CALL [phone] When Within 2-4 days Where: Follow Up with [facility] When Within 2-4 days Where: [address] [place] [address] [place] [address]- Business (1) Follow Up with KHOA DANIEL APRN, CNP When Within 2-4 days Where: [address] [facility] [place] [address]- Allergies NKA Medications Please ask your primary doctor or pharmacist before taking any other medication not listed, including over the counter drugs, herbal medications, vitamins and or supplements as they may interact withyour home medications. What How Much When Why Instructions Last Dose New cyclobenzaprine (Flexeril use cyclobenzaprine) 10 Milligram by mouth Three (3) times a day as needed for Muscle spasm Lumbar strain Duration: 5 Days Printed Prescription New meloxicam (meloxicam 7.5 mg oral tablet) 1 tab(s) by mouth Once a day Lumbar strain Duration: 30 Days if tolerated well may increase to 15 mg (2 tabs) per day Printed Prescription Unchanged naproxen (naproxen 500 mg oral tablet) 1 tab(s) by mouth Two (2) times a day Duration: 30 Days Unchanged None - No Current Medications Please take this list to your next doctor s visit. Bring all medications you take, including over the counter medications, herbals and other supplements with you to your doctor s visit. Patients and families are reminded to discard old lists and to update any records with all medication providers or retail pharmacies. Education Materials Back Pain (Acute or Chronic) Back pain is one of the most common problems. The good news is that most people feel better in 1 to2 weeks, and most of the rest in 1 to 2 months. Most people can remain active. People who have pain describe it differently not everyone is the same. The pain can be sharp, stabbing, shooting, aching, cramping or burning. Movement, standing, bending, lifting, sitting, or walking may worsen pain. It can be localized to one spot or area, or it can be more generalized. It can spread or radiate upwards, to the front, or go down your arms or legs (sciatica). It can cause muscle spasm. Most of the time, mechanical problems with the muscles or spine cause the pain. Mechanical problemsare usually caused by an injury to the muscles or ligaments. While illness can cause back pain, it is usually not caused by a serious illness. Mechanical problems include: Physical activity such as sports, exercise, work, or normal activity Overexertion, lifting, pushing, pulling incorrectly or too aggressively Sudden twisting, bending, or stretching from an accident, or accidental movement Poor posture Stretching or moving wrong, without noticing pain at the time Poor coordination, lack of regular exercise (check with your doctor about this) Spinal disc disease or arthritis Stress Pain can also be related to , or illness like appendicitis, bladder or kidney infections, pelvic infections, and many other things. Acute back pain usually gets better in 1 to 2 weeks. Back pain related to disk disease, arthritis in the spinal joints or spinal stenosis (narrowing of the spinal canal) can become chronic and last for months or years. Unless you had a physical injury (for example, a car accident or fall) X-rays are usually not needed for the initial evaluation of back pain. If pain continues and does not respond to medical treatment, X-rays and other tests may be needed. Home care Try these home care recommendations: When in bed, try to find a position of comfort. A firm mattress is best. Try lying flat on your back with pillows under your knees. You can also try lying on your side with your knees bent up towardsyour chest and a pillow between your knees. At first, do not try to stretch out the sore spots. If there is a strain, it is not like the good soreness you get after exercising without an injury. In this case, stretching may make it worse. Don't sit for long periods, as in a long car ride or during other travel. This puts more stress on the lower back than standing or walking. During the first 24 to 72 hours after an acute injury or flare up of chronic back pain, apply an ice pack to the painful area for 20 minutes and then remove it for 20 minutes. Do this over a period of 60 to 90 minutes or several times a day. This will reduce swelling and pain. Wrap the ice pack in a thin towel or plastic to protect your skin. You can start with ice, then switch to heat. Heat (hot shower, hot bath, or heating pad) reduces pain and works well for muscle spasms. Heat can be applied to the painful area for 20 minutes then remove it for 20 minutes. Do this over a period of 60 to 90 minutes or several times a day. Do not sleep on a heating pad. It can lead to skin cui or tissue damage. You can alternate ice and heat therapy. Talk with your doctor about the best treatment for your back pain. Therapeutic massage can help relax the back muscles without stretching them. Be aware of safe lifting methods and do not lift anything without stretching first. Medicines Talk to your doctor before using medicine, especially if you have other medical problems or are taking other medicines. You may use fqjx-iow-bychbwa medicine as directed on the bottle to control pain, unless another pain medicine was prescribed. If you have chronic conditions like diabetes, liver or kidney disease, stomach ulcers, or gastrointestinal bleeding, or are taking blood thinners, talk to your doctor beforetaking any medicine. Be careful if you are given a prescription medicines, narcotics, or medicine for muscle spasms. They can cause drowsiness, affect your coordination, reflexes, and judgement. Do not drive or operate heavy machinery. Follow-up care Follow up with your healthcare provider, or as advised. A radiologist will review any X-rays that were taken. Your provide will notify you of any new findings that may affect your care. Call 911 Call 911 if any of the following occur: Trouble breathing Confusion Very drowsy or trouble awakening Fainting or loss of consciousness Rapid or very slow heart rate Loss of bowel or bladder control When to seek medical advice Call your healthcare provider right away if any of these occur: Pain becomes worse or spreads to your legs Weakness or numbness in one or both legs Numbness in the groin or genital area [employer]. [address] [place] [address]. All rights reserved. This information is not intended as a substitute for professional medical care. Always follow yourhealthcare professional's instructions. Lumbar Flexion (Flexibility) 1. Lie on your back on the floor, with your knees bent and your feet flat on the floor. 2. Gently pull your knees up toward your chest. Put your hands under your thighs to help pull your knees up. 3. Press your lower back down to the floor. Hold for 20 seconds. 4. Lower your legs back down to the floor and relax. 5. Repeat 2 times, or as instructed. [employer]. [address], [place] [address]. All rights reserved. This information is not intended as a substitute for professional medical care. Always follow yourhealthcare professional's instructions. Lumbar Extension (Flexibility) 1. Lie face down on your stomach, forehead on the floor. You can lie on a mat or towel. 2. Bend your arms next to your body and lift your upper body up on your forearms. Your palms and forearms should be flat on the floor. Keep your stomach and hips on the floor. 3. Hold your upper body up with your forearms for 20 seconds. Slowly lower back down to the floor. 4. Repeat 2 times, or as instructed. [id number] [employer]. [address] [place] [address], [place] [address]. All rights reserved. This information is not intended as a substitute for professional medical care. Always follow yourhealthcare professional's instructions. Additional Information VACCINATE! IT SAVES LIVES! Members of the community who have not yet received the COVID-19 vaccine and would like to receive it can visit one of [facility] vaccine clinics. There are many vaccine clinic locations within the [facility]. For locations and available times, please visit www.gettheshot.coronavirus.[place].gov/. It is important to note that some COVID mobile vaccine clinics are held outdoors and may be canceled in rainy or stormy conditions. To learn more about pediatric vaccinations (ages 5-11), we invite you to visit the [facility] webpage. https://www.[email or web address].org/pages/[email or web address]-Izdpv-Ptjefbrsmbo-Nbnwwopkqb-Jslex-Qqj stions.htmlTo learn more about the COVID-19 vaccine, we invite you to visit the CDC website for a list of frequently asked questions. https://www.cdc.gov/coronavirus/2019-ncov/vaccines/faq.html [facility] Patient Portal Access Instructions: Stay connected with your healthcare team and access your personal medical information anytime with the [facility] Patient Portal. If you would like a full copy of your medical records please contact the [facility] Medical Records Department Tuesday through Tuesday between 8a.m. and 4:30p.m. Please follow the directions below to access the portal: 1.Access the email account you provided upon registration to the [facility].2.Look for an invitation email from [facility].3.Open the email and access the invitation link: Accept Invitation to [facility].Fill in the required white to create your account. Sign into [email or web address] with your username and password that you created in the above steps to stay up to date. You can then view a summary of results, a summary of your visits, and the ability to download your summaries to your computer or send the information securely to a physician. Remember that your healthcare information is confidential, so carefully consider who you will allow to register on the [facility] Patient Portal for access to your information. You can also access the [facility] Patient Portal on the [employer]. Simply click on Health Records under [employer] and then click on the [facility] logo. HOW TO SAFELY DISPOSE OF PRESCRIPTION MEDICATIONS Please use one of the following methods to safely dispose of your unused medications. 1.Use a drug disposal kit: the drug disposal pouch allows you to safely discard your old and unuseddrugs. Ask your nurse to give you one when you are discharged.2.Visit a local take-back location: Many local pharmacies and police departments have programs that collect old and unwanted prescriptiondrugs. Call your local pharmacy or go to http://Nintex.Zhanzuo/9O4My6f to find one close to you.3.Make use of household items: Use cat litter or old coffee grounds to dispose medications if other options arenot available. Mix your drugs with these household products, seal them in an airtight container andthrow it into the garbage. Call [facility]: [phone] to be sure your drugs can be disposed of in this way. Some medicines may require a different approach.4.Never flush your medications down the toilet. IF YOU HAVE BEEN PRESCRIBED AN OPIOIDS FOR PAIN If you have been prescribed an opioid (such as hydrocodone, oxycodone or morphine), it is critical to understand the possible side effects and risks of opioid pain medications. Even when taken as directed, opioids can have several side effects including: Tolerance, meaning you might need to take more of a medication for the same pain relief. Nausea, vomiting and/or constipation. Sleepiness, dizziness, dry mouth, confusion, depression or itching. Physical dependence, meaning you have withdrawal symptoms when a medication is stopped ? this can develop within a few days. KNOW YOUR RESPONSIBILITIES It is important to know exactly how much and how often to take the opioid pain medications you are prescribed. Never take opioids in higher amounts or more often than prescribed. Do not combine opioids with alcohol or other drugs that cause drowsiness, such as benzodiazepines, also known as benzos,including diazepam and alprazolam, muscle relaxants or sleep aids. Never sell or share prescriptionopioids. This is illegal. Store opioids in a secure place and out of reach of others (including children, family, friends and visitors). The last page(s) of this document has been signed and retained as a CHART COPY Signatures Patient Education Materials Back Pain (Acute or Chronic) Lumbar Flexion (Flexibility) Lumbar Extension (Flexibility) Medication Leaflets My discharge plan and instructions have been reviewed and explained to me and I,AYAN LARIOS understand my current condition and have read and understand these discharge instructions. I have received a written copy of the plan/instructions. If I have questions, I am aware that I should contact my doctor. 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: Relationship to Patient: Witness [facility]/Signature: [facility] No data available for this section [facility]* Diagnosis Onset Date Resolution Status Smokes cigars noneactive Chronic back pain greater than 3 months duration noneactive Screening for cardiovascular condition noneactive Establishing care with new doctor, encounter for noneactive [facility] Work Phone: Evaluation note* Diagnosis Closed nondisplaced fracture of distal phalanx of left ring finger, initial encounter- Primary [facility] Diagnosis Closed fracture of tuft of distal phalanx of finger- Primary Closed fracture of distal phalanx or phalanges of hand documented [facility] Diagnosis Closed fracture of tuft of distal phalanx of finger- Primary Closed fracture of distal phalanx or phalanges of hand documented in this [facility] Diagnosis Pain in finger of left hand- Primary Pain in limb Open nondisplaced fracture of distal phalanx of left ring finger, initial encounter documented in this encounter [facility] for referral (narrative)* Diagnostic Procedure Only (Routine) - Pending Review Specialty Diagnoses / Procedures Referred By Contac t Referred To Contact XR IMAGING Diagnoses Closed fracture of tuft of distal phalanx of finger Procedures XR DIGIT GENERAL 3V FRONTAL/LAT/OBL LEFT RADEX FINGR MINIMUM 2 VIEWS Kirill Reynolds MD [address] [place] [address] [place] [address] Referral ID Status Reason Start Date Expiration Date Visits Requested Visits Authorized [id number] Pending Review Auto-Generat ed Referral 11/24/2022 12/24/2023 1 1 [facility] for referral (narrative)* Diagnostic Procedure Only (Routine) - Pending Review Specialty Diagnoses / Procedures Referred By Contac t Referred To Contact XR IMAGING Diagnoses Closed fracture of tuft of distal phalanx of finger Procedures XR DIGIT GENERAL 3V FRONTAL/LAT/OBL LEFT RADEX FINGR MINIMUM 2 VIEWS Kirill Reynolds MD [address] [place] [address] [place] [address] Referral ID Status Reason Start Date Expiration Date Visits Requested Visits Authorized [id number] Pending Review Auto-Generat ed Referral 12/04/2022 01/02/2024 1 1 [facility] for referral (narrative)* Diagnostic Procedure Only (Routine) - Pending Review Specialty Diagnoses / Procedures Referred By Contac t Referred To Contact XR IMAGING Diagnoses Closed fracture of tuft of distal phalanx of finger Procedures XR DIGIT GENERAL 3V FRONTAL/LAT/OBL LEFT RADEX FINGR MINIMUM 2 VIEWS Kirill Reynolds MD [address] [place] [address] [place] [address] Referral ID Status Reason Start Date Expiration Date Visits Requested Visits Authorized [id number] Pending Review Auto-Generat ed Referral 12/27/2022 01/23/2024 1 1 [facility] Summary Purpose Family History No Family History Records Found Relationship Condition Age at Onset Recorded Date/T leonid mother Arthritis Unknown Malignant neoplasm of breast Unknown father Arthritis Unknown Advance Directives No Advanced Directives Records FoundNo Advanced Directives Records FoundNo Advanced Directives Records Found Chief Complaint and Reason for Visit 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 Surendra Valenzuela MD Primary Care Provider Active Team Status: Inactive Member Role Status Dates Dr. Surendra Valenzuela MD Attending Provider Active Team Status: Inactive Member Role Status Dates Dr. Maria De Jesus Briceño MD Primary Care P pearlder, Attending Provider, Referring Provider Active Team Status: Inactive Member Role Status Dates Dr. Surendra Valenzuela MD Primary Care Pro vider, Attending Provider, Referring Provider Active Data Developer Relationship Specialty Start Date End Date Surendra Valenzuela MD [address] [place] [address] PCP - General Internal Medicine 11/23/22 Data Developer Relationship Specialty Start Date End Date Surendra Valenzuela MD [address] [place], [place] [address] PCP - General Internal Medicine 11/23/22 Data Developer Relationship Specialty Start Date End Date Surendra Valenzuela MD [address] [place], [place] [id number] PCP - General Internal Medicine 11/23/22 Data Developer Relationship Specialty Start Date End Date Surendra Valenzuela MD [address] [place], [place] [id number] PCP - General Internal Medicine 11/23/22 (unrecognized sect ion and content) No Status Records FoundNo Status Records FoundNo Status Records Found INFORMATION SOURCE (unrecogn ized section and content) DATE CREATED AUTHOR 07/02/2022 [facility] DATE CREATED AUTHOR AUTHOR'S ORGANIZ ATION 12/24/2023 [facility] DATE CREATED AUTHOR AUTHOR'S ORGANIZ ATION 05/26/2024 [facility] Goals (unrecognized section and content) Goals may be documented in a n alternate section Source Comments (unrecognize d section and content) In the event this informatio n is protected by the Federal Confidentiality of Alcohol and Drug Abuse Patient Records regulations: The Federal rules restrict any use of the information to criminally investigate or prosecute any alcohol or drug abuse patient.[facility] the event this information is protected by the Federal Confidentiality of Alcohol and Drug Abuse Patient Records regulations: The Federal rules restrict any use of the information to criminally investigate or prosecute any alcohol or drug abuse patient.[facility] the event this information is protected by the Federal Confidentiality of Alcohol and Drug Abuse Patient Records regulations: The Federal rules restrict any use of the information to criminally investigate or prosecute any alcohol or drug abuse patient.[facility] the event this information is protected by the Federal Confidentiality of Alcohol and Drug Abuse Patient Records regulations: The Federal rules restrict any use of the information to criminally investigate or prosecute any alcohol or drug abuse patient.[facility] Hospital[facility] the event this information is protected by the Federal Confidentiality of Alcohol and Drug Abuse Patient Records regulations: The Federal rules restrict any use of the information to criminally investigate or prosecute any alcohol or drug abuse patient.[facility] Reason for Visit (unrecogniz ed section and content) Reason Comments New Pain Fracture Reason Comments Post Op Reason Comments OT EVAL Specialty Diagnoses / Procedures Referred By Jared t Referred To Contact Occupational Therapy / OCCUPATIONAL THERAPY Diagnoses [id number] finger Procedures NEW RS OT HAND Kirill Reynolds MD [address] [place] [address] Anali Briggs OTR/L [address] [place] [address] Referral ID Status Reason Start Date Expiration Date V isits Requested Visits Authorized [id number] Pending Review 12/03/2022 03/03/2023 1 1 FOR RECORDS PERTAINING TO PATIENTS WHO ARE OR HAVE BEEN ENROLLED IN A CHEMICAL DEPENDENCY/SUBSTANCEABUSE PROGRAM, SOME INFORMATION MAY BE OMITTED. This clinical summary was aggregated from multiple sources. Caution should be exercised in using it in the provision of clinical care. This summary normalizes information from multiple sources, and as a consequence, information in this document may materially change the coding, format and clinical context of patient data. In addition, data may be omitted in some cases. CLINICAL DECISIONS SHOULD BE BASED ON THE PRIMARY CLINICAL RECORDS. [employer] [facility]. provides no warranty or guarantee of the accuracy or completeness of information in this document.
[2025-02-08] MEDS: HYDROcodone Bitartrate/Apap 5/325 Tablet PO (19:53)
--- NOTE | 2025-02-08 20:05 | RAD_ITS ---
PROCEDURE: RIBS UNI MIN 3V W/PA CHEST 02/08/2025 REASON FOR EXAM: TRAUMA TECHNIQUE: Procedure Code: RADRIB Modality: DX Procedure: RIBS UNI MIN 3V W/PA CHEST FINDINGS: The lungs are clear. No evidence of acute fracture. RAD/Ribs Uni Min 3V w/PA Chest IMPRESSION: No obvious rib fracture. Reading Location: [id number]
[2025-02-08 20:32] VITALS: BP 121/80; PULSE 83; RESP 18; O2SAT 97
[2025-02-08 21:56] VITALS: BP 127/84; PULSE 78; RESP 18; TEMP 36.4; O2SAT 98
== END 2025-02-08 21:57 | disposition home or self-care (01) ==
PROVIDERS: Emergency Provider Emergency Medicine; PCP Internal Medicine; Visit Provider Emergency Medicine
DX: S20.219A Contusion of unspecified front wall of thorax, initial encounter (principal); Y99.0 Civilian activity done for income or pay; F17.200 Nicotine dependence, unspecified, uncomplicated; V85.5XXA Driver of special construction vehicle injured in nontraffic accident, initial encounter; W22.8XXA Striking against or struck by other objects, initial encounter
CPT/HCPCS: 71101; 99282